=== PATIENT | male | born 1985 ===

== ENCOUNTER 2017-10-29 08:15 | Emergency (ER) | payer OTHER ==
[2017-10-29 08:19] VITALS: BMI 25.8
[2017-10-29 08:21] VITALS: TEMP 98.3
[2017-10-29] MEDS ORDERED: Sodium Chloride 0.9% 1,000 ML IV ONE ×2 (08:38→12:23)
[2017-10-29 09:09] LABS: BASO % 0.5 % (0.0-2.0); EOS # 0.2 K/uL (0.0-0.7); EOS % 2.3 % (0.0-4.0); HEMOGLOBIN 13.8 g/dL (12.0-18.0); LYMPH # 0.9 K/uL (1.0-4.3); LYMPH % 12.9 % (20.0-40.0); MEAN CORPUSCULAR HEMOGLOBIN 31.5 pg (27.0-31.0); MEAN CORPUSCULAR HGB CONC 35.4 g/dL (33.0-37.0); MEAN PLATELET VOLUME 8.1 fL (7.2-11.7); MONO # 0.5 K/uL (0.0-0.8); MONO % 7.1 % (0.0-10.0); NEUT # 5.4 K/uL (1.8-7.0); NEUT % 77.2 % (50.0-75.0); NRBC % 0.2 % (0.0-2.0); RBC 4.37 Mil/uL (4.40-5.90); RED CELL DISTRIBUTION WIDTH 12.8 % (11.5-14.5)
[2017-10-29 09:20] LABS: ALB/GLOB RATIO 1.4 (1.0-2.1); ALBUMIN 4.1 g/dL (3.5-5.0); ALT/SGPT 68 U/L (21-72); AST/SGOT 54 U/L (17-59); BLOOD UREA NITROGEN 11 mg/dL (9-20); GFR AFRICAN-AMERICAN > 60; GFR NON-AFRICAN AMERICAN > 60
--- NOTE | 2017-10-29 09:21 | C.PDOC ---
History Of Present Illness 32 year old male presents to ED for evaluation of abdominal pain associated with non-bloody diarrhea that started 2 days ago. He denies taking any meds for his symptoms. Notes having similar symptoms a few years ago. Admits to ETOH use daily. Otherwise, denies nausea, vomiting, urinary symptoms, back pain, fever, or chills. Time Seen by Provider: 10/29/17 08:22 Chief Complaint (Nursing): Abdominal Pain History Per: Patient History/Exam Limitations: no limitations Onset/Duration Of Symptoms: Days Current Symptoms Are (Timing): Still Present Location Of Pain/Discomfort: RUQ, RLQ Radiation Of Pain To:: None Quality Of Discomfort: "Pain" Associated Symptoms: Diarrhea. denies: Fever, Chills, Loss Of Appetite, Back Pain, Chest Pain, Constipation, Urinary Symptoms Exacerbating Factors: None Alleviating Factors: None Recent travel outside of the [place]: No Additional History Per: Patient Past Medical History Reviewed: Historical Data, Nursing Documentation, Vital Signs Vital Signs: Last Vital Signs Temp 98.3 F 10/29/17 13:13 Pulse 60 10/29/17 13:13 Resp 20 10/29/17 13:13 BP 142/90 10/29/17 13:13 Pulse Ox 98 10/29/17 13:13 - Medical History PMH: Denies: Diabetes, Hepatitis, HIV, HTN, Seizures, Sexually Transmitted Disease - [facility] Procedures APPLICATION OF SPLINT (09/15/14) Family History: States: Unknown Family Hx - Social History Hx Tobacco Use: No Hx Alcohol Use: Yes Hx Substance Use: No - Immunization History Hx Tetanus Toxoid Vaccination: No Hx Influenza Vaccination: No Hx Pneumococcal Vaccination: No Review Of Systems Except As Marked, All Systems Reviewed And Found Negative. Constitutional: Negative for: Fever, Chills Gastrointestinal: Positive for: Abdominal Pain, Diarrhea. Negative for: Nausea , Vomiting, Constipation, Melena, Hematochezia Genitourinary: Negative for: Dysuria, Frequency, Hematuria, Penile Discharge Musculoskeletal: Negative for: Back Pain Physical Exam - Physical Exam Appears: Non-toxic, Other (uncomfortable) Skin: Warm, Dry, Ecchymosis (Ecchymosis to extremities and abdomen in varying sizes (which pt states is secondary to paintball)) Head: Atraumatic, Normacephalic Eye(s): bilateral: Normal Inspection, EOMI Nose: Normal Oral Mucosa: Moist Neck: Normal ROM, Supple Chest: Symmetrical Cardiovascular: Rhythm Regular Respiratory: Normal Breath Sounds, No Rales, No Rhonchi, No Wheezing Gastrointestinal/Abdominal: Bowel Sounds, Soft, Tenderness (tenderness to epigastic), No Guarding, No Rebound Back: No CVA Tenderness Extremity: Normal ROM Neurological/Psych: Oriented x3, Normal Speech ED Course And Treatment - Laboratory Results Result Diagrams: 10/29/17 09:01 10/29/17 09:01 O2 Sat by Pulse Oximetry: 98 (RA) Pulse Ox Interpretation: Normal - CT Scan/US Abd/pelvis Other Rad Studies (CT/US): Read By Radiologist, Radiology Report Reviewed CT/US Interpretation: Date of service: 10/29/2017. PROCEDURE: CT Abdomen and Pelvis with contrast. HISTORY: pain. COMPARISON: None. TECHNIQUE: Contrast dose: 100 mL Visipaque 320. Axial and reformatted coronal and sagittal CT images of the abdomen and pelvis were obtained after IV contrast administration. Radiation dose: Total exam DLP = 579.89 mGy-cm. This CT exam was performed using one or more of the following dose reduction techniques: Automated exposure control, adjustment of the mA and/or kV according to patient size, and/or use of iterative reconstruction technique. FINDINGS: LOWER THORAX : No evidence of acute pathology at the lung bases. Minimal atelectasis is noted. LIVER: Moderate hepatic steatosis is noted. The portal vein is patent. GALLBLADDER AND BILE DUCTS: No CT evidence of acute cholecystitis. Mild gallbladder wall thickening is noted. PANCREAS: There are inflammatory changes adjacent to the pancreatic head. The pancreatic head is mildly enlarged demonstrate heterogeneous attenuation. The main pancreatic duct is not dilated. SPLEEN: Unremarkable. ADRENALS: Unremarkable. No mass. KIDNEYS AND URETERS: Mildly dilated right kidney collecting system noted without evidence of obstructing stone. The kidneys enhance symmetrically. VASCULATURE: Unremarkable. No aortic aneurysm. BOWEL: Inflammatory changes noted adjacent to the descending duodenum. Mildly dilated 3rd portion of the duodenum noted. No evidence of high-grade bowel obstruction. The large bowel is not distended. Questionable large bowel wall thickening versus incomplete distention. No evidence of high-grade bowel obstruction. APPENDIX: No evidence of appendicitis. The appendix is not clearly visualized. PERITONEUM: Small amount of fluid noted at the right abdomen. No evidence of free air. LYMPH NODES: Unremarkable. No enlarged lymph nodes. BLADDER: Unremarkable. REPRODUCTIVE: Unremarkable. BONES: No acute fracture. OTHER FINDINGS: None. IMPRESSION: Inflammatory changes and small fluid noted adjacent to the pancreatic head and descending duodenum. The differential consideration includes acute pancreatitis versus acute pathology in the duodenum. No evidence of free air to suggest perforated peptic ulcer. Small amount of fluid also seen at the right abdomen adjacent to the ascending colon. No evidence of acute cholecystitis or appendicitis. Large bowel wall thickening versus incomplete distention. No other acute pathology noted as described above. Progress Note: Blood work, UA ordered and reviewed. Pt was given Protonix, Toradol, and IV fluids. On re-eval, patient reports feeling better, with improvement of pain. Abdomen remains soft. Admission was offered, pt declined. Notes he feels better, has to go to work tomorrow. Case discussed with Dr Crawford, agreed upon plan and discharge. Medical Decision Making Medical Decision Making: The patient declines admission, and wishes to leave the Emergency Department. ~ This action is against my medical advice to the patient and the decision was made with informed refusal. The patient was told that admission is necessary and a full explanation of the rationale was given. ~The risks of leaving were explained to the patient and include, but are not limited to, worsening of known or currently unknown conditions, permanent disability and from undiagnosed or untreated conditions ~The patient has the capacity to make this informed decision and understands the clinical situation and my explanation of the risks of leaving. The patient voluntarily accepts these risks, and a signed AMA form documenting our conversation was obtained. The patient was given the opportunity to ask questions and reconsider. ~The patient was encouraged to return to the Emergency Department at any time for further care. Disposition - Disposition Disposition: HOME/ ROUTINE Disposition Time: 12:01 Condition: STABLE Additional Instructions: Follow up with your doctor in 1-2 days. Return to ER if symptoms persist or worsen. Prescriptions: Naproxen [Naprosyn] 1 tab PO BID PRN #20 tab PRN Reason: Pain Ondansetron ODT [Zofran ODT] 1 odt PO BID PRN #6 odt PRN Reason: Nausea/Vomiting Instructions: Pancreatitis (DC) Forms: [employer] (Belgian), (AMA) Informed Refusal - Clinical Impression Clinical Impression: Pancreatitis, acute - PA / LOCOMOTIVE SUPERVISOR / Resident Statement MD/DO has reviewed & agrees with the documentation as recorded. - Scribe Statement The provider has reviewed the documentation as recorded by the Scribe EDWINA All medical record entries made by the Scribe were at my direction and personally dictated by me. I have reviewed the chart and agree that the record accurately reflects my personal performance of the history, physical exam, medical decision making, and the department course for this patient. I have also personally directed, reviewed, and agree with the discharge instructions and disposition.
[2017-10-29 09:34] LABS: URINE BILIRUBIN NEGATIVE (NEGATIVE); URINE BLOOD NEGATIVE (NEGATIVE); URINE CLARITY Clear (Clear); URINE COLOR Yellow (YELLOW); URINE GLUCOSE (UA) NORMAL (Normal); URINE LEUKOCYTE ESTERASE NEG Leu/uL (Negative); URINE PROTEIN NEGATIVE (NEGATIVE); URINE UROBILINOGEN NORMAL mg/dL (0.2-1.0)
[2017-10-29 09:55] LABS: LIPASE 4778 U/L (23-300)
[2017-10-29] MEDS ORDERED: Morphine 4 MG/ML VIAL ONE (10:20)
[2017-10-29] MEDS ORDERED: Iodixanol 320 MG/ML 100 ML BOTTLE IV ONE (10:36)
--- NOTE | 2017-10-29 11:40 | CT ---
Date of service: 10/29/2017 PROCEDURE: CT Abdomen and Pelvis with contrast HISTORY: pain COMPARISON: None. TECHNIQUE: Contrast dose: 100 mL Visipaque 320. Axial and reformatted coronal and sagittal CT images of the abdomen and pelvis were obtained after IV contrast administration. Radiation dose: Total exam DLP = 579.89 mGy-cm. This CT exam was performed using one or more of the following dose reduction techniques: Automated exposure control, adjustment of the mA and/or kV according to patient size, and/or use of iterative reconstruction technique. FINDINGS: LOWER THORAX: No evidence of acute pathology at the lung bases. Minimal atelectasis is noted. LIVER: Moderate hepatic steatosis is noted. The portal vein is patent. GALLBLADDER AND BILE DUCTS: No CT evidence of acute cholecystitis. Mild gallbladder wall thickening is noted. PANCREAS: There are inflammatory changes adjacent to the pancreatic head. The pancreatic head is mildly enlarged demonstrate heterogeneous attenuation. The main pancreatic duct is not dilated. SPLEEN: Unremarkable. ADRENALS: Unremarkable. No mass. KIDNEYS AND URETERS: Mildly dilated right kidney collecting system noted without evidence of obstructing stone. The kidneys enhance symmetrically. VASCULATURE: Unremarkable. No aortic aneurysm. BOWEL: Inflammatory changes noted adjacent to the descending duodenum. Mildly dilated 3rd portion of the duodenum noted. No evidence of high-grade bowel obstruction. The large bowel is not distended. Questionable large bowel wall thickening versus incomplete distention. No evidence of high-grade bowel obstruction. APPENDIX: No evidence of appendicitis. The appendix is not clearly visualized. PERITONEUM: Small amount of fluid noted at the right abdomen. No evidence of free air. LYMPH NODES: Unremarkable. No enlarged lymph nodes. BLADDER: Unremarkable. REPRODUCTIVE: Unremarkable. BONES: No acute fracture. OTHER FINDINGS: None. IMPRESSION: Inflammatory changes and small fluid noted adjacent to the pancreatic head and descending duodenum. The differential consideration includes acute pancreatitis versus acute pathology in the duodenum. No evidence of free air to suggest perforated peptic ulcer. Small amount of fluid also seen at the right abdomen adjacent to the ascending colon. No evidence of acute cholecystitis or appendicitis. Large bowel wall thickening versus incomplete distention. No other acute pathology noted as described above.
[2017-10-29 12:00] VITALS: O2SAT 98
[2017-10-29 13:15] VITALS: BP 142/90; PULSE 60; RESP 20
== END 2017-10-29 13:52 | disposition home or self-care (01) ==
LOC: C.ER 08:15
DX: K85.90 Acute pancreatitis without necrosis or infection, unspecified (principal)
CPT/HCPCS: 74177; 80053; 81001; 83690; 85025; 85610; 85730; 96361; 96374; 96375; 99285; C9113; J1885; J2270; J2405; J7030; Q9967